=== PATIENT | female | born 1945 | race Caucasian/White ===

== ENCOUNTER → 2018-12-08 20:15 | Outpatient (REF) | payer MEDICARE, SELFPAY ==
[2018-12-08 21:04] LABS: Alanine Aminotransferase 37 IU/L (9-52); Albumin 4.6 g/dL (3.5-5.0); Albumin Globulin Ratio 1.6 (1.0-2.8); Alkaline Phosphatase 84 U/L (38-126); Aspartate Aminotransferase 28 IU/L (14-36); BUN Creatinine Ratio 21.3 (6-22); Bilirubin Total 0.6 mg/dL (0.2-1.3); Blood Urea Nitrogen 17 mg/dL (7-17); Carbon Dioxide 29 mmol/L (22-32); Chloride 103 mmol/L (98-107); Cholesterol 206 mg/dL (140-199); Estimated Glomerular Filt Rate > 60.0 mL/min (>60); Globulin 2.8 g/dL (1.7-4.1); Glucose 77 mg/dL (80-110); HDL Cholesterol 103 mg/dL (40-60); HEMOLYSIS < 15 (0-50); LDL Cholesterol Calculated 82 mg/dL (<100); Potassium 4.2 mmol/L (3.4-5.1); Sodium 141 mmol/L (137-145); Total Protein 7.4 g/dL (6.3-8.2); Triglycerides 104 mg/dL (35-150)
== END ==
LOC: LAB 20:15
PROVIDERS: Visit Provider Family Medicine Geriatric Medicine
DX: E78.5 Hyperlipidemia, unspecified (principal); Z79.899 Other long term (current) drug therapy
CPT/HCPCS: 36415; 80053; 80061

== ENCOUNTER 2020-09-30 08:19 | Day surgery (SDC) | payer MEDICARE, SELFPAY ==
[2020-09-27 09:50] VITALS: BMI 23.3
[2020-09-30] VITALS (8 sets, daily range): BP systolic 112–145; BP diastolic 62–88; PULSE 105–129; RESP 12–18; TEMP 36.6–37.2; O2SAT 96–100; BMI 22.8
--- NOTE | 2020-09-30 | PATH_ITS ---
[facility] Accession Number: [id number] . 01 Material submitted: . PART A: uterine adnexa - BILATERAL FALLOPIAN TUBES AND BILATERAL OVARIES PART B: endometrium - ENDOMETRIAL POLYP . 02 Diagnosis: A. Bilateral Fallopian Tubes and Bilateral Ovaries, Laparoscopic Bilateral Salpingo-oophorectomy: Non-cystic ovary with small (1-5 mm) dispersed parenchymal nodules most consistent with benign Leydig cell hyperplasia by immunohistochemistry studies and with benign cortical inclusion cysts (1-5 mm in greatest dimension). Cystic ovary involved by a benign serous cystadenoma (intact ovary measures 7.0 x 5.5 x 3.5 cm). Fallopian tube associated with the cystic ovary demonstrates serosal adhesions, nonspecific, and a small benign paratubal cyst (1 mm). Fallopian tube associated with noncystic ovary with multiple benign paratubal cysts (1-5 mm); negative for atypia or malignancy. . B. Endometrial Polyp: Portions of polyp (3.5 x 3.0 x 0.8 cm in aggregate) involved by florid cystic endosalpingiosis; negative for glandular hyperplasia, cytologic atypia or malignancy. [facility] 10/10/2020 1358 Local . 02 Comment: As part of routine senior quality assurance analyst, parts of this case was also reviewed by Dr. Mosqueda, who agrees with the interpretation. . 02 Electronically signed: . Roxy Betancourt MD, Pathologist NPI- [id number] . 01 Gross description: . A. The specimen is received in formalin, labeled bilateral fallopian tubes and bilateral ovaries and consists of two ovaries and fallopian tubes. One ovary is cystic, measuring 7.0 x 5.5 x 3.5 cm and displays a brooks-pink smooth external surface. Opening reveals yellow-tinged serous fluid and a brooks-pink smooth to granular internal lining with no papillary excrescences. There are fimbriae adherent to the external surface of the cystic ovary and a detached 7.0 cm in length by 0.5 cm in diameter portion of fallopian tube which displays a brooks-pink smooth external surface with a 0.1 cm paratubal cyst. Sectioning reveals a brooks mucosa and a stellate lumen measuring 0.2 cm in diameter. The other ovary measures 3.0 x 1.5 x 1.4 cm and displays a brooks smooth external surface with multiple cysts ranging from 0.1 to 0.2 cm. Sectioning reveals multiple additional serous-filled cysts ranging from 0.1 to 0.5 cm. No papillary excrescences are identified. The attached fallopian tube measures 7.0 cm in length by 0.8 cm in diameter and displays a brooks-pink smooth serosa with multiple paratubal cysts ranging from 0.1 to 0.3 cm. Sectioning reveals a brooks mucosa and a stellate lumen measuring 0.4 cm in diameter. Event Representative sections are submitted. . A1-A3 - phlebotomy services representative cystic ovary. A4 - cyst in relation to bisected adherent fimbria. A5 - cross-sections of detached fallopian tube. A6 - phlebotomy services representative other ovary. A7-A8 - attached fallopian tube, margin (blue), central cross-sections and bisected fimbria. . B. The specimen is received in formalin, labeled endometrial polyp and consists of multiple brooks-pink fragments of soft tissue measuring 3.5 x 3.0 x 0.8 cm in aggregate. The specimen is entirely submitted in cassette B1. (EA:[id number]) /V 10/02/[address] [place] [address] . 02 Microscopic: . Immunohistochemical studies were performed to evaluate the cells of interest. The control stains showed appropriate reactivity. . RESULTS (block A6): . CK7: Negative. Melan-A: Positive. Calretinin: Positive. Inhibin: Positive. PAX8: Negative. Reticulin: Nested pattern; loss of pericellular staining. . The parenchymal nodules in the non-cystic ovary are immunopositive for Melan A, calretinin, and inhibin and are immunonegative for CK7 and PAX8. Reticulin stain demonstrates a nested pattern. These findings are most consistent with a sex cord/stromal proliferation. Histomorphologic features are most consistent with benign Leydig cell hyperplasia. There is no histomorphologic evidence of malignancy. . * This test was developed and its performance characteristics determined by [facility]. It has not been cleared or approved by the U.S. Food and Drug Administration. The FDA has determined that such clearance or approval is not necessary. This test is used for clinical purposes. It should not be regarded as investigational or for research. . 02 Pathologist provided ICD-10: D27.9 . 02 CPT . 643660, 602118, S54294, A67143 Performed at: 01 [facility] [address] [address], [place], [place] [id number] MD Fredo Juárez MD Phone: [phone] Performed at: 02 [facility] [address] [place], [place] [id number] MD Ailin Mosqueda MD Phone: [phone]
[2020-09-30] MEDS: LACTATED RINGERS 1,000 ML 42 ML IV ×2 (08:53→13:35)
--- NOTE | 2020-09-30 10:55 | PM.HP.1 ---
History of Present Illness History of Present Illness Date Patient Seen: 09/30/20 Time Patient Seen: 10:55 Chief complaint: SDC Narrative: Patient is a 74-year-old 0 with a complex left ovarian cyst and endometrial hyperplasia consistent with a polyp She is here for laparoscopic bilateral salpingo-oophorectomy and D&C hysteroscopy with polypectomy Patient History Medical History (Updated 09/27/20 @ 09:55 by Tracy Chahal RN) Afib HTN (hypertension) Family & Social History Social History: household members spouse Tobacco & Substance use: Smoking Status Never smoker alcohol intake current alcohol intake frequency 0-2 drinks per day Substance Use Type does not use Meds Home Medications and Allergies Home Medications Medication Instructions Recorded Confirmed Type amlodipine 5 mg tablet 5 mg PO DAILY 08/08/20 09/30/20 History apixaban 5 mg tablet 5 mg PO BID 08/08/20 09/30/20 History cholecalciferol (vitamin D3) 25 25 mcg PO DAILY 08/08/20 09/30/20 History mcg (1,000 unit) capsule flecainide 150 mg tablet 150 mg PO Q12H 08/08/20 09/30/20 History benazepril 40 mg PO DAILY 09/27/20 09/30/20 History Allergies Allergy/AdvReac Type Severity Reaction Status Date / Time Penicillins Allergy Verified 08/08/20 11:44 Exam Vital Signs (past 8 hours): - 09/30/20 08:39 Temperature 97.8 F Pulse Rate 128 H Respiratory Rate 18 Blood Pressure 145/78 H Pulse Oximetry 99 Oxygen Delivery Method Room Air Narrative Exam Narrative: HEENT: No thyromegaly, no anterior cervical or supraclavicular lymphadenopathy. Lungs:Clear to auscultation bilaterally, no wheezes. Cardiovascular: Regular rate and rhythm, no murmurs, rubs, or gallops. Abdomen: No scars. No hepatosplenomegaly. No masses palpable. External genitalia: Normal Vagina: Normal Cervix: Nulliparous Bimanual exam: 5 Week size anteverted uterus. Mobile. Rectal: No masses. Assessment & Plan Assessment & Plan narrative: Assessment: 74-year-old 0 with a complex left ovarian cyst and endometrial hyperplasia consistent with an endometrial polyp Plan: D&C hysteroscopy with polypectomy Laparoscopic bilateral salpingo-oophorectomy The risks, benefits, and alternatives to the procedure were explained to the patient. The risks including bleeding, infection, injury to the bowel, bladder, ureters, or uterine perforation. She understands these risks and agrees to proceed. A full par Q was held and consent form was signed. COVID-19 COVID-19 status: Negative Result date/Date tested (Pos, Neg/Pending): 09/27/20 Time Spent With Patient Time with patient: 15-24 minutes
--- NOTE | 2020-09-30 10:58 | PM.PREOP ---
Pre-operative Note COVID-19 COVID-19 status: Negative Result date/Date tested (Pos, Neg/Pending): 09/27/20 Interval Note History & Physical reviewed/Exam performed by Physician: Yes Changes to H&P: No H&P completed within 30 days and has changed as indicated here:: 09/30/20
--- NOTE | 2020-09-30 11:23 | SUR.PREOP ---
Pt informed Dr. Ruggiero about her Afib, DSr. Bahman asked for EKG to be proformed. RT called, EKG obtained and showed to Dr. Sebastian. Pt placed on monitor showing Afib rate 128-145.
--- NOTE | 2020-09-30 12:05 | SUR.OPER ---
Addendum entered by Perri Hoffman R.N. 09/30/20 12:38: Correction to note below, Bilateral arms on gel pads and tucked at side. Original Note: Lithotomy on padded OR bed, head on foam and gel donut, arms secured on padded arm boards at <90 degrees abduction. Legs secured in padded yellow fins stirrups.
[2020-09-30] MEDS: BUPIVACAINE 0.5% W/ EPI (PF) 30 ML VIAL INJ (12:17)
--- NOTE | 2020-09-30 12:51 | PATH_ITS ---
Note [facility] Accession Number: [id number] TESTS RESULT FLAG UNITS REF RANGE LAB Clinician Provided Cytology Information No. of containers..01 Other (Miscellaneous) 01 CYST FLUID DIAGNOSIS: 01 CYST FLUID NEGATIVE FOR MALIGNANT CELLS. THIS INTERPRETATION INCLUDES EVALUATION OF A CELL BLOCK. Pathologist ICD10: 01 N83.209 Devika Wallace MD, Pathologist NPI- [id number] Geremias Deluna, Community Health Educator ([facility]) 01 25 CC, YELLOW, CLEAR RECEIVED: FRESH IN ORANGE CAP CONTAINER. /VDU 10/03/2020 0437 Local FLAG LEGEND: L-Low Normal,H-High Normal,LL-Alert Low,HH-Alert High <-Panic Low,>-Panic High,A-Abnormal,AA-Critical Abnormal Performed at: 01 =Z [facility] [address], [place] [address] Fredo Juárez MD, Performed at: 01 [facility] [address], [place], [place] [id number] MD Fredo Juárez MD Phone: [phone]
--- NOTE | 2020-09-30 13:27 | P.OP_ITS ---
Operative Date/Time/Diagnoses Date of procedure: 09/30/20 Time of procedure: 13:27 Pre-op diagnosis: Complex left ovarian cyst Endometrial polyp Post-op diagnosis: same Procedure & Clinicians Procedure: Procedures Operation Date: 09/30/20 09:45 Actual Procedures Side Surgeon p Laparoscopic Salpingectomies/ Oophorectomies Bilateral Geeta Ruggiero MD s Hysteroscopy D&C, polyp resection Geeta Ruggiero MD Indications: Left ovarian cyst Endometrial polyp Surgeon: Geeta Ruggiero Anesthesia Type: General and Local Operative Notes Findings: Six week size anteverted uterus Normal tubes 10 cm left ovarian cyst Normal right ovary Normal appendix Normal liver and gallbladder Large endometrial polyp arising from the anterior wall Closure Type: primary Specimen(s): left tube & ovary, right tube & ovary and other (Left ovarian cyst fluid to cytology, endometrial polyp) Estimated blood loss (mL): 10 Blood products transfused: none Procedure in detail: After informed consent was obtained, the patient was taken to the operating room where she was placed in the dorsal supine position. After adequate general endotracheal anesthesia was achieved, she was placed in the dorsal lithotomy position, and prepped and draped in the usual sterile fashion. A time-out was performed. A bivalve speculum was placed into the vagina and the anterior lip of the cervix grasped with a single-tooth tenaculum. The cervical os was sequentially dilated until the Zumi uterine manipulator could pass easily into the endometrial cavity. Single-tooth tenaculum was removed from the anterior lip of the cervix. [place] speculum was removed from the vagina. Attention was then turned to the abdomen where 6 cc of 0.5% Marcaine with epinephrine were injected in the umbilical fold. A 5 mm incision was made. The Veress needle was placed into the peritoneal cavity, and its placement confirmed by aspiration and drop test. The abdominal cavity was insufflated with 3.4 L of CO2. The Veress needle was removed, and a 5 mm trocar was placed without difficulty. Two other 5 mm trocars were placed 4 cm lateral to the midline after 6 cc of 0.5% Marcaine with epinephrine were injected and 5 mm incisions were made. These were placed under direct visualization. The right tube and ovary were grasped with an atraumatic grasper. Using the PlasmaKinetic was settings of 40 w, the infundibulopelvic ligament on the right side work was cauterized and cut. The utero-ovarian vessels were cauterized and cut. The tube was amputated at the cornua of the uterus. The left ovary was grasped with an atraumatic grasper with care not to rupture the cyst. The infundibulopelvic ligament on the left side was cauterized and cut with the PlasmaKinetic. The utero-ovarian vessels were cauterized and cut. The broad ligament was cauterized and cut. The tube was amputated at the cornua of the uterus. Above the pubic symphysis 6 cc of 0.5% Marcaine with epinephrine were injected and a 1 cm incision was made. A 10 mm trocar was placed under direct visualization. A small endobag was placed through the trocar. Both tubes and ovaries were placed into the bag. The suprapubic trocar was removed and the bag edges were brought up over the skin. The cyst was decompressed by aspirating approximately 60 cc of clear yellow fluid. This was sent to cytology. The bag was then removed without difficulty and no spill. The pelvis was copiously irrigated with warm normal saline. There was no bleeding noted. The instruments were removed from the abdomen. The CO2 was allowed to escape. The suprapubic incision was closed on the fascia with 0 Vicryl. Two simple interrupted sutures with 2-0 Vicryl were placed in the subcutaneous layer. All of the incisions were closed on the skin with 4 0 Biosyn in a subcuticular fashion. Steri-Strips and Allevyn dressings were placed. Attention was then turned to the vagina where the Zumi uterine manipulator was removed from the uterus. The bivalve speculum was placed into the vagina. The single-tooth tenaculum was placed on the anterior lip of the cervix. Cervical os was sequentially dilated to the 8 Hegar dilator. The hysteroscope passed easily into the endometrial cavity. There was a large polyp arising from the anterior uterine wall. The resectoscope passed easily into the endometrial cavity. With settings at 80 cut and 60 cautery, the polyp was resected in approximately 6 pieces. The polyp forceps were then used to remove any loose fragments. The instruments were removed from the uterus. The single-tooth tenaculum was removed from the anterior lip of the cervix. The bivalve speculum was removed from the vagina. Sponge, lap, and instrument counts were correct x2. The patient tolerated the procedure well, was taken to PACU in stable condition. Complications: none Post-operative Condition: stable Disposition: PACU Plan for aftercare: Home after recovery
--- NOTE | 2020-09-30 13:42 | SUR.PHASEI ---
Assumed care from dinesh Alaniz given applesauce and medicated with pain med.
[2020-09-30] MEDS: OXYCODONE/ACETAMINOPHEN 5/325 TABLET 1 TAB PO (13:48)
--- NOTE | 2020-09-30 13:49 | SUR.PHASEI ---
dressings remained c/d/i, no nausea. To OPD
--- NOTE | 2020-09-30 14:06 | SUR.PHASEII ---
called, d/c instructions discussed, he has already picked up pain meds from pharmacy. Priority load for 4:50 pm kamar faxed.
== END 2020-09-30 14:42 | disposition home or self-care (01) ==
PROVIDERS: Family Provider Obstetrics & Gynecology; PCP Physician Assistant Medical; Referring Provider Physician Assistant Medical; Visit Provider Obstetrics & Gynecology
PROC: 0UT74ZZ Resection of Bilateral Fallopian Tubes, Percutaneous Endoscopic Approach (ICD-10-PCS; CPT 58661; principal; 2020-09-30 09:45)
PROC: 0UDB8ZZ Extraction of Endometrium, Via Natural or Artificial Opening Endoscopic (ICD-10-PCS; CPT 58558; 2020-09-30 09:45)
DX: N83.202 Unspecified ovarian cyst, left side (principal); I48.91 Unspecified atrial fibrillation; I10 Essential (primary) hypertension; N84.0 Polyp of corpus uteri
CPT/HCPCS: 58661; 58558; 93005; 93010; J0330; J1100; J2405; J2704; J3010